=== PATIENT | female | born 1945 | race Two or more races ===

== ENCOUNTER → 2024-04-22 | Outpatient (CLI) | payer OTHER, SELFPAY ==
[2024-04-22 09:43] LABS: Parathyroid Hormone Intact 81.5 pg/ml (18.5-88.0)
[2024-04-22 09:44] LABS: Glucose Estimated Average 146 mg/dL (80-131); Hemoglobin A1C 6.7 % Hgb (4.8-6.0)
[2024-04-22 09:46] LABS: Creatinine MALB Rnd Ur 50 mg/dL (30-125); Microalbumin Creat Ratio 6 mg/gCrea (<30); Microalbumin, Random Urine 3 mg/L (0-300)
[2024-04-22 09:48] LABS: Albumin, Serum 4.1 gm/dL (3.4-4.8); Anion Gap 5 (7-16); BUN/Creatinine Ratio 25 Ratio (12-20); Blood Urea Nitrogen 25 mg/dL (9-23); Calcium 9.7 mg/dL (8.3-10.6); Calcium (Corrected) 9.7 mg/dL (8.5-10.1); Carbon Dioxide 27.6 mMol/L (20.0-31.0); Chloride 102 mMol/L (98-107); Glucose 145 mg/dL (74-106); Osmolality,Calculated 277 (275-295); Phosphorous 3.8 mg/dL (2.4-5.1); Potassium 4.6 mMol/L (3.4-5.1); Sodium 135 mMol/L (136-145); eGFR 57 See Note
== END | disposition home or self-care (01) ==
PROVIDERS: PCP Internal Medicine; Referring Provider Internal Medicine; Visit Provider Internal Medicine
DX: I12.9 Hypertensive chronic kidney disease with stage 1 through stage 4 chronic kidney disease, or unspecified chronic kidney disease (principal); E11.22 Type 2 diabetes mellitus with diabetic chronic kidney disease; N18.30 Chronic kidney disease, stage 3 unspecified
CPT/HCPCS: 36415; 80069; 82043; 82570; 83036; 83970

== ENCOUNTER → 2024-07-08 | Outpatient (CLI) | payer OTHER, SELFPAY ==
--- NOTE | 2024-07-08 14:00 | XR_ITS ---
Examination: Bone densitometry Date and time of exam:July 08, 2024 at 1418 hours INDICATIONS: Hysterectomy age 43 lumbar spine surgery 2012 Technique: Lumbar spine and hip total bone mineralization values of an calculated. Peak reference and age match control results have been displayed. Findings: Lumbar spine total bone mineralization is1.153 gm/cm2. This is 1.2 standard deviations above peak reference. This is 3.9 standard deviations above age-matched controls. Hip total bone mineralization is 0.902 gm/cm2 This is 0.4 standard deviations below peak reference. This is 1.7 standard deviations above age-matched controls Impression: There is normal mineralization based on lumbar spine measurements. There is normal mineralization based on hip measurements Lumbar mineralization is increased 1.9% compared with June 14, 2022 Hip mineralization is decreased 3.2% compared with June 14, 2022
--- NOTE | 2024-07-08 14:30 | XR_ITS ---
Examination: Screening digital mammography, bilateral Computer aided detection 3-D breast Tomosynthesis, bilateral Date and time of exam: July 08, 2024 1400 hours Compared to mammograms dating to January 15, 2007 Indication: Screening Technique: Nonmagnified MLO, CC views of the breasts to been obtained, reconstructed from 3-D Tomosynthesis images. R2 computer aided detection program utilized for evaluation of suspicious masses and/or abnormal calcifications. 3-D Tomosynthesis images obtained. Findings: Scattered areas of fibroglandular density. 8 mm focal asymmetry slightly inner and upper right breast mid depth Benign calcifications Impression: BI-RADS Category 0: Incomplete: Need additional imaging evaluation 8 mm focal asymmetry slightly inner and upper right breast mid depth, recommend follow-up spot tomographic views of this asymmetry as well as right breast sonography to complete the workup
== END | disposition home or self-care (01) ==
PROVIDERS: PCP Internal Medicine; Referring Provider Internal Medicine; Visit Provider Internal Medicine
DX: Z12.31 Encounter for screening mammogram for malignant neoplasm of breast (principal); N64.89 Other specified disorders of breast; M81.0 Age-related osteoporosis without current pathological fracture
CPT/HCPCS: 77063; 77067; 77080

== ENCOUNTER → 2024-08-25 | Outpatient (CLI) | payer OTHER, SELFPAY ==
[2024-08-25 09:00] LABS: Basophils # (Auto) 0.1 Thou/mm3 (0.0-0.2); Basophils % (Auto) 1 % (0-2.5); Eosinophils # (Auto) 0.2 Thou/mm3 (0.0-0.5); Eosinophils % (Auto) 3 % (0-10); Hemoglobin 11.6 g/dL (12.0-16.0); Immature Granulocytes % (Auto) 0 % (0-0); Immature Granulocytes Auto 0.03 Thou/mm3 (0.00-0.00); Lymphocytes # (Auto) 1.8 Thou/mm3 (1.0-4.8); Lymphocytes % (Auto) 22 % (10-50); Mean Corpuscular HGB Conc 35.2 g/dl (31.0-37.0); Mean Corpuscular Hemoglobin 30.6 pg (25.0-35.0); Mean Corpuscular Volume 87 fL (80-100); Monocytes # (Auto) 0.5 Thou/mm3 (0.0-0.8); Monocytes % (Auto) 6 % (0-12); Neutrophils # (Auto) 5.6 Thou/mm3 (1.8-7.7); Neutrophils % (Auto) 68 % (37-80); Nucleated Red Blood Cell % 0 /100 WBC (0); Platelet Count 264 Thou/mm3 (140-440); Red Blood Count 3.79 Miln/mm3 (4.00-5.20); White Blood Count 8.2 Thou/mm3 (3.6-11.0)
[2024-08-25 09:04] LABS: Glucose Estimated Average 140 mg/dL (80-131); Hemoglobin A1C 6.5 % Hgb (4.8-6.0)
[2024-08-25 09:08] LABS: Collection Type, Urine Clean Catch
[2024-08-25 09:18] LABS: Alanine Aminotransferase 12 U/L (10-49); Albumin, Serum 4.3 gm/dL (3.4-4.8); Albumin/Globulin Ratio 1.8 (1.2-2.2); Alkaline Phosphatase 76 U/L (46-116); Anion Gap 8 (7-16); Aspartate Amino Transferase 17 U/L (0-34); BUN/Creatinine Ratio 19 Ratio (12-20); Bilirubin,Total 0.4 mg/dL (0.3-1.2); Blood Urea Nitrogen 19 mg/dL (9-23); Calcium 9.7 mg/dL (8.3-10.6); Calcium (Corrected) 9.7 mg/dL (8.5-10.1); Cardiac Risk Estimate 3.4 RATIO (3.7-5.6); Chloride 100 mMol/L (98-107); Cholesterol 148 mg/dL (132-200); Globulin 2.4 gm/dL (2.3-3.5); Glucose 136 mg/dL (74-106); HDL Cholesterol 43 mg/dL (40-60); LDL Cholesterol,Calculated 87 mg/dL (0-130); Osmolality,Calculated 270 (275-295); Potassium 4.7 mMol/L (3.4-5.1); Sodium 133 mMol/L (136-145); Thyroid Stimulating Hormone 4.12 uIU/mL (0.55-4.78); Total Protein 6.7 gm/dL (5.7-8.2); Triglycerides 92 mg/dL (30-150); eGFR 57 See Note
[2024-08-25 09:56] LABS: Bilirubin,Urine Negative (Negative); Blood,Urine Negative (Negative); Clarity,Urine Clear (Clear/Hazy); Color,Urine Lt-Yellow (Lt Yel-Yel); Glucose, Urine Negative (Negative); Ketones,Urine Negative (Negative); Leukocyte Esterase,Urine Negative (Negative); Nitrite,Urine Negative (Negative); Protein,Urine Negative (Neg - Trace); RBC,Urine 2 /hpf (0-3); Specific Gravity,Urine 1.011 (1.001-1.035); Squamous Epithelial Cell,Urine < 1 /hpf (0-5); Urobilinogen,Urine Negative mg/dL (0.0-1.0); WBC,Urine 1 /hpf (0-5)
== END | disposition home or self-care (01) ==
PROVIDERS: PCP Internal Medicine; Referring Provider Internal Medicine; Visit Provider Internal Medicine
DX: I12.9 Hypertensive chronic kidney disease with stage 1 through stage 4 chronic kidney disease, or unspecified chronic kidney disease (principal); E11.22 Type 2 diabetes mellitus with diabetic chronic kidney disease; N18.30 Chronic kidney disease, stage 3 unspecified; E78.5 Hyperlipidemia, unspecified; E03.9 Hypothyroidism, unspecified
CPT/HCPCS: 36415; 80053; 80061; 81001; 83036; 84443; 85025

== ENCOUNTER → 2024-09-01 | Outpatient (CLI) | payer OTHER, SELFPAY ==
[2024-09-01 11:07] LABS: OBS Performed By LAB; OBS QC OK? Yes
[2024-09-01 14:50] LABS: OBS Developer Lot # 551749; Occult Blood, Stool Negative (Negative); Occult Blood, Stool #2 Negative (Negative); Occult Blood, Stool #3 Negative (Negative)
== END | disposition home or self-care (01) ==
LOC: SLDO 10:34
PROVIDERS: Referring Provider Internal Medicine; Visit Provider Internal Medicine
DX: Z12.11 Encounter for screening for malignant neoplasm of colon (principal)
CPT/HCPCS: 82270

== ENCOUNTER → 2024-10-02 | Outpatient (CLI) | payer OTHER, SELFPAY ==
--- NOTE | 2024-10-02 08:30 | XR_ITS ---
Examination: Breast ultrasound, unilateral, right complete Date and time of exam: October 02, 2024 0844 hours INDICATIONS: Mammogram July 08, 2024 8mm focal asymmetry inner upper right breast mid depth Technique: Real-time melendez scale ultrasonographic imaging performed right breast including all 4 quadrants as well as nipple retroareolar and axillary region. Findings: No cystic or solid mass IMPRESSION: BI-RADS Category 1: Negative study
--- NOTE | 2024-10-02 09:00 | XR_ITS ---
Examination: Diagnostic digital mammography, unilateral, right Computer aided detection 3-D breast Tomosynthesis, unilateral Date and time of exam: October 02, 2024 0903 hours INDICATIONS: Mammogram July 08, 2024 8mm focal asymmetry inner upper right breast Technique: Nonmagnified MLO, CC views of the right breast have been obtained, reconstructed from 3-D Tomosynthesis images. R2 computer aided detection program utilized for evaluation of suspicious masses and/or abnormal calcifications. 3-D Tomosynthesis images obtained. Findings: Scattered areas of fibroglandular density 6 mm nodule is confirmed slightly inner and upper right breast on the spot compression views Impression: BI-RADS category 3: Probably benign findings Recommend 1 additional 6 month right mammogram follow-up
== END | disposition home or self-care (01) ==
LOC: CDIM 08:25
PROVIDERS: PCP Internal Medicine; Referring Provider Internal Medicine; Visit Provider Internal Medicine
DX: R92.331 Mammographic heterogeneous density, right breast (principal)
CPT/HCPCS: 76641; 77061; 77065; G0279

== ENCOUNTER 2024-10-28 15:27 | Emergency (ER) | payer OTHER, SELFPAY ==
[2024-10-28 15:40] VITALS: BP 161/74; PULSE 74; RESP 18; TEMP 37; O2SAT 95
--- NOTE | 2024-10-28 15:44 | XR_ITS ---
Examination: CT soft tissue neck, with intravenous contrast. 2-D coronal reconstructions. 2-D sagittal reconstructions. Date and time of exam :October 28, 2024, 1904 hours INDICATIONS: Neck pain sore throat difficulty swallowing beginning 2 days ago.. CTDI: vol (mGy):10.9 DLP: (mGycm):287 Technique: 1.25 mm axial sections of the neck of the obtained. Coronal and sagittal reconstructions have been obtained. Intravenous contrast administered 50 cc Isovue-370.. Low dose protocols were performed. One or more of the following dose reduction techniques were used; automated exposure control, adjustment of the mA and/or KV according to patient size, use of iterative reconstruction technique. Findings: Nasopharynx. Dental artifacts obscure much of the detail of the tonsils No kalyani tonsillar abscess is noted Symmetrical submandibular glands. The larynx appears normal. Multiple bilateral thyroid nodules, the largest in the left thyroid lobe 6 mm Normal epiglottis No definite prevertebral soft tissue prominence Satisfactory alignment cervical vertebral bodies IMPRESSION: Dental artifacts obscure much of the detail the tonsils but no tonsillar abscess is depicted No nasopharyngeal mass. Normal larynx. Normal epiglottis. No prevertebral soft tissue prominence. Bilateral thyroid nodules
--- NOTE | 2024-10-28 15:45 | PD.EDRME ---
Rapid Medical Screening Exam RME Arrival date/time: 10/28/24 15:27 79-year-old female presents to the emergency department for complaints of difficulty swallowing Chief Complaint: General Adult/Misc Complain Time Seen by Provider: 10/28/24 15:44 Vital signs: Vital Signs Temperature 98.6 F 10/28/24 15:40 Pulse Rate 74 10/28/24 15:40 Respiratory Rate 18 10/28/24 15:40 Blood Pressure 161/74 H 10/28/24 15:40 Pulse Oximetry (%) 95 10/28/24 15:40 Oxygen Delivery Method Room Air 10/28/24 15:40
[2024-10-28 16:12] LABS: Basophils # (Auto) 0.1 Thou/mm3 (0.0-0.2); Basophils % (Auto) 1 % (0-2.5); Eosinophils # (Auto) 0.2 Thou/mm3 (0.0-0.5); Eosinophils % (Auto) 2 % (0-10); Hematocrit 36.0 % (36.0-46.0); Hemoglobin 12.3 g/dL (12.0-16.0); Immature Granulocytes Auto 0.03 Thou/mm3 (0.00-0.00); Lymphocytes # (Auto) 2.6 Thou/mm3 (1.0-4.8); Lymphocytes % (Auto) 27 % (10-50); Mean Corpuscular HGB Conc 34.2 g/dl (31.0-37.0); Mean Corpuscular Hemoglobin 30.1 pg (25.0-35.0); Mean Corpuscular Volume 88 fL (80-100); Monocytes # (Auto) 0.7 Thou/mm3 (0.0-0.8); Monocytes % (Auto) 7 % (0-12); Neutrophils # (Auto) 6.2 Thou/mm3 (1.8-7.7); Neutrophils % (Auto) 64 % (37-80); Nucleated Red Blood Cell # 0.00 Thou/mm3 (0.00-0.00); Nucleated Red Blood Cell % 0 /100 WBC (0); Platelet Count 239 Thou/mm3 (140-440); RDW Standard Deviation 41.3 fL (36.4-46.3); Red Blood Count 4.08 Miln/mm3 (4.00-5.20); White Blood Count 9.6 Thou/mm3 (3.6-11.0)
[2024-10-28 16:41] LABS: Alanine Aminotransferase 16 U/L (10-49); Albumin, Serum 4.6 gm/dL (3.4-4.8); Albumin/Globulin Ratio 1.7 (1.2-2.2); Alkaline Phosphatase 90 U/L (46-116); Anion Gap 9 (7-16); Aspartate Amino Transferase 21 U/L (0-34); BUN/Creatinine Ratio 16 Ratio (12-20); Bilirubin,Total 0.3 mg/dL (0.3-1.2); Blood Urea Nitrogen 18 mg/dL (9-23); Calcium 10.5 mg/dL (8.3-10.6); Calcium (Corrected) 10.5 mg/dL (8.5-10.1); Carbon Dioxide 26.7 mMol/L (20.0-31.0); Chloride 100 mMol/L (98-107); Creatinine (Component) 1.1 mg/dL (0.6-1.3); Estimated Creatinine Clearance 33.0 mL/min (>60); Globulin 2.7 gm/dL (2.3-3.5); Glucose 136 mg/dL (74-106); Osmolality,Calculated 275 (275-295); Potassium 4.3 mMol/L (3.4-5.1); Sodium 136 mMol/L (136-145); Total Protein 7.3 gm/dL (5.7-8.2); eGFR 50 See Note
[2024-10-28 17:13] LABS: Strep A Rapid Negative (Negative)
--- NOTE | 2024-10-28 20:34 | EDNOTE_ITS ---
ED General RME/HPI General Chief complaint: General Adult/Misc Complain Stated complaint: TROUBLE SWALLOWING, UNABLE TO EAT Time Seen by Provider: 10/28/24 15:44 Arrival date/time: 10/28/24 15:27 RME / HPI RME / HPI narrative: 10/28/24 15:27 79-year-old female presents to the emergency department for complaints of difficulty swallowing ------- Dr. Dueñas?s Main ED Evaluation: 79yo female presents with sore throat that is waxing and waning for the last 1-2 weeks that has been escalating within the last 2 days. No fever or chills. She has difficulty tolerating saliva. No vomiting or diarrhea. Notes recent mild flu-like symptoms. Patient notes she has been on thyroid supplements long-term. PMH includes tachyarrhythmia, DM, HTN, HLD, and hypothyroidism. PSH noncontributory. No alcohol or tobacco use. Related Data Previous Rx's ?Medication ?Instructions ?Recorded doxycycline hyclate 100 mg capsule 100 mg PO BID #14 c aps 05/18/18 ibuprofen 100 mg/5 mL oral 400 mg (20 mL) PO QID #473 mL 10/28/24 suspension (Children's Motrin) prednisolone 15 mg/5 mL oral 30 mg (10 mL) PO QDAY 5 d ays #50 mL 10/28/24 solution Allergies Allergy/AdvReac Type Severity Reaction Status Date / Time clindamycin Allergy Severe Numbness Verified 10/28/24 15:31 codeine Allergy Severe Vomiting Verified 10/28/24 15:31 sulfamethoxazole Allergy Severe RASH, Verified 10/28/24 15:31 VOMITING trimethoprim Allergy Severe RASH, Verified 10/28/24 15:31 VOMITING Cephalosporins Allergy Intermediate Difficulty Verified 10/28/24 15:31 Breathing Penicillins Allergy Mild RASH Verified 10/28/24 15:31 hydrocodone AdvReac Severe VOMITING Verified 10/28/24 15:31 Review of Systems Review of Systems Systems Reviewed: All systems reviewed, normal except as documented Past Medical History Past Medical History NEUROLOGIC: Negative Neurological Disorders or Seizures CARDIAC: Positive Hypertension; Negative Cardiac Disorders or Congestive Heart Failure RESPIRATORY: Negative Chronic Obstructive Pulmonary Disease (COPD) or Asthma GASTROINTESTINAL: Positive Gastrointestinal Disorders and Diverticulitis GENITOURINARY: Positive Renal Disease; Negative Genitourinary Disorders MUSCULOSKELETAL: Positive Musculoskeletal Disorders and Arthritis ENDOCRINE: Positive Endocrine Disorders, Diabetes Mellitus Type 2 and Hypothyroidism; Negative Diabetes Mellitus Type 1 HEMATOLOGIC: Negative Blood Disorders or Sickle Cell Disease OTHER HISTORY: Positive Chicken Pox and Measles; Negative Blood Transfusions, Blood Transfusion Reaction or Anesthesia Reactions Family History FAMILY HISTORY: Positive Family Cardiac Disorders Surgical History SURGICAL: Positive Abdominal Surgery, Bowel Surgery, Joint Replacement and Hysterectomy Social History SMOKING STATUS: Never smoker SECOND HAND EXPOSURE: No SUBSTANCE USE: does not use ED Exam Narrative Physical exam: GENERAL APPEARANCE: alert and oriented x 4, well-developed, well-nourished, nontoxic, no acute distress VITALS: All vitals were reviewed and the pulse ox is 95% on room air, which is normal according to my interpretation. HEENT: Normocephalic, atraumatic; pupils equal, round, reactive to light; EOMI; mucous membranes pink, moist; [id number] erythema at the posterior pharynx without exudate, hypertrophy, or asymmetry; tolerates secretions NECK: Supple, no stridor, no obvious lymphadenopathy LUNGS: CTABL; no wheezes, no rales, no rhonchi HEART: Regular rate, regular rhythm; normal S1, S2; no murmurs ABDOMEN: non distended; normal BS; soft, no tenderness, no guarding, no rebound; no masses, no organomegaly, no hernia BACK: no CVA tenderness EXTREMITIES: atraumatic; no edema NEUROLOGIC: awake; alert and oriented x4; cranial nerves II-XII grossly intact; no focal sensory or motor deficits PSYCHIATRIC: appropriate mood and affect SKIN: warm, dry, normal color; no rashes Course Quality Measures none Orders Category Date Time Status CT Screening NOW Care 10/28/24 15:[address] soft tissue neck w con Stat Exams 10/28/24 15:44 Completed CBC Stat Lab 10/28/24 15:56 Completed CMP [Comprehensive Metabolic Panel] Stat Lab 10/28/24 15:56 Completed Strep A Rapid Stat Lab 10/28/24 16:09 Completed Dexamethasone Inj [Decadron Inj] Med 10/28/24 21:00 Discontinued 10 mg IV X1 ONE Lidocaine 2% Viscous [Xylocaine 2% Viscous] Med 10/28/24 20:54 Discontinued 15 ml PO X1 ONE Vital Signs Vital signs: Vital Signs Temperature 98.6 F 10/28/24 15:40 Pulse Rate 74 10/28/24 15:40 Respiratory Rate 18 10/28/24 15:40 Blood Pressure 161/74 H 10/28/24 15:40 Pulse Oximetry (%) 95 10/28/24 15:40 Oxygen Delivery Method Room Air 10/28/24 15:40 Discharge Plan Plan Patient Disposition: HOME (Self Care) Discharge Disposition comment: Stable Prescriptions/Referrals Prescriptions/Med Rec: New prednisolone 15 mg/5 mL solution 30 mg PO QDAY 5 Days Qty: 50 0RF ibuprofen [Children's Motrin] 100 mg/5 mL suspension 400 mg PO QID Qty: 473 0RF Rx Instructions: with fluids No Action doxycycline hyclate 100 mg capsule 100 mg PO BID Qty: 14 0RF Referrals: Iam Cabrera MD [Primary Care Provider] - In 1 week Problem List Clinical Impression: Acute viral pharyngitis, Multiple thyroid nodules Patient/Caregiver Discharge Instructions Discharge Activity: activity as tolerated Education Materials: When You Have a Sore Throat, Treating Thyroid Problems, ED URI, Viral, No Abx (Adult) Additional Instructions: Force fluids. Medication as directed. Follow-up with primary care doctor for referral to ENT specialist if symptoms persist. Follow-up with affiliate marketing specialist as there are multiple thyroid nodules present. Print Language: Slovak Stand Alone Forms: Taylor Award Info., Patient Portal Info Letter MDM Narrative [facility] hospital course: Scribe Attestation: 10/28/24 - I, Shawnee Cabrera am scribing for and in the presence of Dr. Dueañs. 79yo female presents with sore throat that is waxing and waning for the last 1-2 weeks that has been escalating within the last 2 days. No fever or chills. Lab markers demonstrate normal CBC, Chemistries show mildly elevated calcium at 10.5 with low albumin. UA without infection. Group A Strep negative. Patient has been resting comfortably throughout ED course. Patient referred for CT soft tissue neck which demonstrated multiple thyroid nodules, otherwise unremarkable. Patient informed of abnormal finding and recommended follow-up US an an outpatient. In the interim, suspect viral pharyngitis. Will treat with a short course of steroids, analgesics, recommend liberal fluid intake, and lozenges. Encouraged close follow-up with PMD for possible ENT referral. Dx: viral phary ngitis. Clinical Information Provided by patient Medical Records Reviewed [facility] (Per chart review, patient has no relevant previous ED visits.) Meds/Rx Considered, not Ordered None Labs/Rad/Tests considered, not Ordered None Chronic Illness/Social Conditions Add or document further as needed: Hx DM, HTN EKG EKG not done Lab Interpretation Labs: interpreted by me Imaging Imaging interpretation: interpreted by me Radiology reports / interpretation(s): [place] [facility] Report Signed Patient: JHONNY IRVING Record#: [id number] Birthdate: 1945 Age/Sex: 79 / F Location: [facility] Attending Dr: Ordering Physician: Francisco (GREG)Sandro NP Date of Service: 10/28/24 Procedure(s): CT soft tissue neck w con Accession Number(s): [id number] cc: Francisco PENNY),Sandro GARZA; Iam Cabrera MD; Stevan Johnson MD~ Examination: CT soft tissue neck, with intravenous contrast. 2-D coronal reconstructions. 2-D sagittal reconstructions. Date and time of exam :October 28, 2024, 1904 hours INDICATIONS: Neck pain sore throat difficulty swallowing beginning 2 days ago.. CTDI: vol (mGy):10.9 DLP: (mGycm):287 Technique: 1.25 mm axial sections of the neck of the obtained. Coronal and sagittal reconstructions have been obtained. Intravenous contrast administered 50 cc Isovue-370.. Low dose protocols were performed. One or more of the following dose reduction techniques were used; automated exposure control, adjustment of the mA and/or KV according to patient size, use of iterative reconstruction technique. Findings: Nasopharynx. Dental artifacts obscure much of the detail of the tonsils No kalyani tonsillar abscess is noted Symmetrical submandibular glands. The larynx appears normal. Multiple bilateral thyroid nodules, the largest in the left thyroid lobe 6 mm Normal epiglottis No definite prevertebral soft tissue prominence Satisfactory alignment cervical vertebral bodies IMPRESSION: Dental artifacts obscure much of the detail the tonsils but no tonsillar abscess is depicted No nasopharyngeal mass. Normal larynx. Normal epiglottis. No prevertebral soft tissue prominence. Bilateral thyroid nodules Dictated By: Stevan Johnson MD Signed By: <Electronically signed by Stevan Johnson MD in [place]> 10/28/242017 Medication Administration(s) Medication Administration History Discontinued Medications Dexamethasone Sodium Phosphate (Dexamethasone Sod Phos Inj 10 Mg/Ml Vial) 10 mg IV X1 ONE Stop: 10/28/24 21:01 Lidocaine HCl (Lidocaine Viscous 2% 15 Ml Udc) 15 ml PO X1 ONE Stop: 10/28/24 20:55 Viscous lidocaine, Decadron Diagnosis Differential diagnosis: Strep, Influenza, COVID, pharyngitis Most likely dx, and/or detailed dx discussion: see clinical impression above Dispositon Disposition: Discharge Home
[2024-10-28] MEDS: LIDOCAINE VISCOUS 2% 15 ML UDC PO (21:10)
[2024-10-28] MEDS: DEXAMETHASONE SOD PHOS INJ 10 MG/ML VIAL IV (21:18)
== END 2024-10-28 21:22 | disposition home or self-care (01) ==
PROVIDERS: Nurse Practitioner Primary Care; Emergency Provider Emergency Medicine; PCP Family Medicine
DX: J02.8 Acute pharyngitis due to other specified organisms (principal); B97.89 Other viral agents as the cause of diseases classified elsewhere; E04.2 Nontoxic multinodular goiter
CPT/HCPCS: 36415; 70491; 80053; 85025; 87651; 96374; 99284; A4649; J1100; J3490; Q9967

== ENCOUNTER → 2024-12-04 | Outpatient (CLI) | payer OTHER, SELFPAY ==
[2024-12-04 09:10] LABS: Collection Type, Urine Clean Catch; Squamous Epithelial Cell,Urine 0 /hpf (0-5)
[2024-12-04 09:36] LABS: Basophils # (Auto) 0.0 Thou/mm3 (0.0-0.2); Basophils % (Auto) 1 % (0-2.5); Eosinophils # (Auto) 0.1 Thou/mm3 (0.0-0.5); Eosinophils % (Auto) 1 % (0-10); Hematocrit 35.2 % (36.0-46.0); Hemoglobin 11.9 g/dL (12.0-16.0); Immature Granulocytes Auto 0.04 Thou/mm3 (0.00-0.00); Lymphocytes # (Auto) 1.8 Thou/mm3 (1.0-4.8); Lymphocytes % (Auto) 23 % (10-50); Mean Corpuscular HGB Conc 33.8 g/dl (31.0-37.0); Mean Corpuscular Hemoglobin 30.1 pg (25.0-35.0); Mean Corpuscular Volume 89 fL (80-100); Monocytes # (Auto) 0.5 Thou/mm3 (0.0-0.8); Monocytes % (Auto) 7 % (0-12); Neutrophils # (Auto) 5.2 Thou/mm3 (1.8-7.7); Neutrophils % (Auto) 68 % (37-80); Nucleated Red Blood Cell # 0.00 Thou/mm3 (0.00-0.00); Nucleated Red Blood Cell % 0 /100 WBC (0); Platelet Count 241 Thou/mm3 (140-440); RDW Standard Deviation 42.5 fL (36.4-46.3); Red Blood Count 3.95 Miln/mm3 (4.00-5.20); White Blood Count 7.6 Thou/mm3 (3.6-11.0)
[2024-12-04 09:49] LABS: Bilirubin,Urine Negative (Negative); Blood,Urine Negative (Negative); Clarity,Urine Clear (Clear/Hazy); Color,Urine Lt-Yellow (Lt Yel-Yel); Glucose, Urine Negative (Negative); Ketones,Urine Negative (Negative); Leukocyte Esterase,Urine Negative (Negative); Nitrite,Urine Negative (Negative); PH,Urine 6.5 (5.0-7.0); Protein,Urine Negative (Neg - Trace); RBC,Urine 1 /hpf (0-3); Specific Gravity,Urine 1.016 (1.001-1.035); Urobilinogen,Urine Negative mg/dL (0.0-1.0); WBC,Urine 1 /hpf (0-5)
[2024-12-04 09:57] LABS: Alanine Aminotransferase 13 U/L (10-49); Albumin, Serum 4.3 gm/dL (3.4-4.8); Albumin/Globulin Ratio 1.9 (1.2-2.2); Alkaline Phosphatase 79 U/L (46-116); Anion Gap 7 (7-16); Aspartate Amino Transferase 19 U/L (0-34); BUN/Creatinine Ratio 18 Ratio (12-20); Bilirubin,Total 0.4 mg/dL (0.3-1.2); Blood Urea Nitrogen 20 mg/dL (9-23); Calcium 9.6 mg/dL (8.3-10.6); Calcium (Corrected) 9.6 mg/dL (8.5-10.1); Carbon Dioxide 25.3 mMol/L (20.0-31.0); Cardiac Risk Estimate 3.3 RATIO (3.7-5.6); Chloride 105 mMol/L (98-107); Cholesterol 151 mg/dL (132-200); Creatinine (Component) 1.1 mg/dL (0.6-1.3); Globulin 2.3 gm/dL (2.3-3.5); Glucose 120 mg/dL (74-106); HDL Cholesterol 46 mg/dL (40-60); LDL Cholesterol,Calculated 83 mg/dL (0-130); Osmolality,Calculated 277 (275-295); Potassium 4.4 mMol/L (3.4-5.1); Sodium 137 mMol/L (136-145); Thyroid Stimulating Hormone 4.14 uIU/mL (0.55-4.78); Total Protein 6.6 gm/dL (5.7-8.2); Triglycerides 112 mg/dL (30-150); eGFR 50 See Note
[2024-12-04 09:59] LABS: Glucose Estimated Average 154 mg/dL (80-131); Hemoglobin A1C 7.0 % Hgb (4.8-6.0)
[2024-12-04 10:04] LABS: Creatinine MALB Rnd Ur 74 mg/dL (30-125); Microalbumin Creat Ratio 22 mg/gCrea (<30); Microalbumin, Random Urine 16 mg/L (0-300)
== END | disposition home or self-care (01) ==
LOC: COPL 07:40
PROVIDERS: PCP Family Medicine; Referring Provider Family Medicine; Visit Provider Family Medicine
DX: Z00.00 Encounter for general adult medical examination without abnormal findings (principal); E03.9 Hypothyroidism, unspecified; E11.69 Type 2 diabetes mellitus with other specified complication; I10 Essential (primary) hypertension; E78.2 Mixed hyperlipidemia
CPT/HCPCS: 36415; 80053; 80061; 81001; 82043; 82570; 83036; 84443; 85025

== ENCOUNTER → 2024-12-07 | Outpatient (CLI) | payer OTHER, SELFPAY ==
--- NOTE | 2024-12-07 16:54 | XR_ITS ---
Examination: Knee, right , 3 views Technique: Knee AP, lateral, oblique 3 views Date and time of exam: December 07, 2024, 1700 hours INDICATIONS: Right knee pain beginning 5 days ago. FINDINGS: Mild narrowing medial joint space Significant osteopenia Mild narrowing patellofemoral joint Small knee effusion Meniscus calcification No fractures IMPRESSION: Mild narrowing medial patellofemoral joints
== END | disposition home or self-care (01) ==
PROVIDERS: PCP Family Medicine; Referring Provider Family Medicine; Visit Provider Family Medicine
DX: M25.861 Other specified joint disorders, right knee (principal)
CPT/HCPCS: 73562

== ENCOUNTER → 2024-12-22 | Outpatient (CLI) | payer OTHER, SELFPAY ==
[2024-12-22 13:12] LABS: Misc Send Out* See Sep Rpt
[2024-12-22 13:14] LABS: Collection Type, Urine Clean Catch
[2024-12-22 13:29] LABS: Basophils # (Auto) 0.0 Thou/mm3 (0.0-0.2); Basophils % (Auto) 0 % (0-2.5); Eosinophils # (Auto) 0.1 Thou/mm3 (0.0-0.5); Eosinophils % (Auto) 1 % (0-10); Hematocrit 33.1 % (36.0-46.0); Hemoglobin 11.5 g/dL (12.0-16.0); Immature Granulocytes Auto 0.04 Thou/mm3 (0.00-0.00); Immature Reticulocyte Fraction 6.8 % (3.0-15.9); Lymphocytes # (Auto) 2.4 Thou/mm3 (1.0-4.8); Lymphocytes % (Auto) 25 % (10-50); Mean Corpuscular HGB Conc 34.7 g/dl (31.0-37.0); Mean Corpuscular Hemoglobin 30.3 pg (25.0-35.0); Mean Corpuscular Volume 87 fL (80-100); Monocytes # (Auto) 0.6 Thou/mm3 (0.0-0.8); Monocytes % (Auto) 6 % (0-12); Neutrophils # (Auto) 6.5 Thou/mm3 (1.8-7.7); Neutrophils % (Auto) 68 % (37-80); Nucleated Red Blood Cell # 0.00 Thou/mm3 (0.00-0.00); Nucleated Red Blood Cell % 0 /100 WBC (0); Platelet Count 257 Thou/mm3 (140-440); RDW Standard Deviation 40.9 fL (36.4-46.3); Red Blood Count 3.79 Miln/mm3 (4.00-5.20); Reticulocyte % (Auto) 1.5 % (0.5-1.5); Reticulocyte Absolute Auto 56.9 Biln/L (25.0-75.0); Reticulocyte Hgb Content 36.3 pg (28.0-35.0); White Blood Count 9.7 Thou/mm3 (3.6-11.0)
[2024-12-22 13:32] LABS: Bilirubin,Urine Negative (Negative); Blood,Urine Negative (Negative); Clarity,Urine Clear (Clear/Hazy); Color,Urine Colorless (Lt Yel-Yel); Glucose, Urine Negative (Negative); Ketones,Urine Negative (Negative); Leukocyte Esterase,Urine Negative (Negative); Nitrite,Urine Negative (Negative); PH,Urine 6.0 (5.0-7.0); Protein,Urine Negative (Neg - Trace); RBC,Urine 1 /hpf (0-3); Specific Gravity,Urine 1.011 (1.001-1.035); Squamous Epithelial Cell,Urine < 1 /hpf (0-5); Urobilinogen,Urine Negative mg/dL (0.0-1.0); WBC,Urine < 1 /hpf (0-5)
[2024-12-22 13:39] LABS: Creatinine,Random Urine 29 mg/dL (30-125); Protein Total, Random Urine 7 mg/dL (1-14)
[2024-12-22 13:46] LABS: Parathyroid Hormone Intact 121.5 pg/ml (18.5-88.0)
[2024-12-22 13:49] LABS: Alanine Aminotransferase 11 U/L (10-49); Albumin, Serum 4.4 gm/dL (3.4-4.8); Alkaline Phosphatase 78 U/L (46-116); Anion Gap 9 (7-16); Aspartate Amino Transferase 20 U/L (0-34); BUN/Creatinine Ratio 28 Ratio (12-20); Bilirubin,Total 0.2 mg/dL (0.3-1.2); Blood Urea Nitrogen 25 mg/dL (9-23); Calcium 9.2 mg/dL (8.3-10.6); Calcium (Corrected) 9.2 mg/dL (8.5-10.1); Carbon Dioxide 22.6 mMol/L (20.0-31.0); Chloride 102 mMol/L (98-107); Creatine Kinase 60 U/L (34-171); Creatinine (Component) 0.9 mg/dL (0.6-1.3); Glucose 124 mg/dL (74-106); Iron 64 mcg/dL (50-170); Magnesium 1.9 mg/dL (1.6-2.6); Osmolality,Calculated 273 (275-295); Percent Iron Saturation 19 % (20-55); Phosphorous 4.0 mg/dL (2.4-5.1); Potassium 4.2 mMol/L (3.4-5.1); Sodium 134 mMol/L (136-145); Total Iron Binding Capacity 322 mcg/dL (250-425); Total Protein 6.4 gm/dL (5.7-8.2); Unsaturated Iron Binding 258 (225-295); Uric Acid 4.8 mg/dL (3.1-7.8); eGFR > 60 See Note
[2024-12-22 13:53] LABS: Folate 21.05 ng/mL (>5.38); Vitamin B12 777 pg/mL (211-911); Vitamin D 25 Hydroxy Total 38.4 ng/mL (7.3-40.2)
[2024-12-30 13:51] LABS: Albumin 3.9 g/dL (3.8-4.8); Alpha-1-Globulin 0.3 g/dL (0.2-0.3); Alpha-2-Globulin 0.7 g/dL (0.5-0.9); Beta-1-Globulin 0.5 g/dL (0.4-0.6); Beta-2-globulin 0.3 g/dL (0.2-0.5); Gamma Globulin 1.1 g/dL (0.8-1.7)
[2024-12-31 06:29] LABS: ANA Screen, IFA NEGATIVE (NEGATIVE); ANCA Screen NEGATIVE (NEGATIVE); Complement Component C3* 117 mg/dL; Complement Component C4c* 9 mg/dL; DNA (ds) Antibody* 2 IU/mL; Kappa Light Chain, Free 32.3 mg/L (3.3-19.4); Myeloperoxidase Ab <1.0 AI (<1.0); Protein, total, serum 6.7 g/dL (6.1-8.1); Proteinase-3 Ab <1.0 AI (<1.0)
== END | disposition home or self-care (01) ==
LOC: COPL 12:34
PROVIDERS: PCP Family Medicine; Referring Provider Internal Medicine Nephrology; Visit Provider Internal Medicine Nephrology
DX: R79.9 Abnormal finding of blood chemistry, unspecified (principal); I12.9 Hypertensive chronic kidney disease with stage 1 through stage 4 chronic kidney disease, or unspecified chronic kidney disease; N18.1 Chronic kidney disease, stage 1; D63.1 Anemia in chronic kidney disease; M10.9 Gout, unspecified; D50.9 Iron deficiency anemia, unspecified; N39.0 Urinary tract infection, site not specified; E55.9 Vitamin D deficiency, unspecified; R74.8 Abnormal levels of other serum enzymes; R76.9 Abnormal immunological finding in serum, unspecified
CPT/HCPCS: 36415; 80069; 81001; 82247; 82306; 82550; 82570; 82607; 82610; 82746; 83520; 83540; 83550; 83735; 83883; 83970; 84075; 84155; 84156; 84165; 84450; 84460; 84550; 85025; 85046; 86021; 86036; 86038; 86160; 86225; 86255; 86334; 87086